=== PATIENT | female | born 1945 | race Two or more races ===

== ENCOUNTER → 2024-05-31 | Outpatient (CLI) | payer OTHER, SELFPAY ==
--- NOTE | 2024-05-31 13:32 | XR_ITS ---
Examination: Knee, right , 3 views Technique: Knee AP, lateral, oblique 3 views Date and time of exam: May 31, 2024 1430 hours INDICATIONS: Injury to the knee 2 months ago, knee pain FINDINGS: Severe osteopenia No fracture or dislocation No foreign body Impression: No acute fracture
--- NOTE | 2024-05-31 13:32 | XR_ITS ---
Examination: Thoracic spine 3 views Technique one AP lateral coned upper lateral dorsal spine 3 views Exam date and time: May 31, 2024 1432 hours Comparison March 25, 2024 INDICATIONS: Injury to the upper back 2 months ago with persistent upper back pain. FINDINGS: Severe osteopenia Thoracic dextroscoliosis 12 degrees Moderate to severe subacute appearing compression fracture T4, reduction in height 70% No cortical bone destruction IMPRESSION: Subacute moderate to severe compression fracture T4
== END | disposition home or self-care (01) ==
PROVIDERS: PCP Family Medicine; Referring Provider Family Medicine; Visit Provider Family Medicine
DX: S22.049A Unspecified fracture of fourth thoracic vertebra, initial encounter for closed fracture (principal); S89.91XA Unspecified injury of right lower leg, initial encounter; X58.XXXA Exposure to other specified factors, initial encounter
CPT/HCPCS: 72072; 73562

== ENCOUNTER → 2024-10-04 | Outpatient (CLI) | payer OTHER, SELFPAY ==
[2024-10-04 13:53] LABS: Basophils % (Auto) 1 % (0-2.5); Eosinophils # (Auto) 0.1 Thou/mm3 (0.0-0.5); Eosinophils % (Auto) 2 % (0-10); Hematocrit 29.2 % (36.0-46.0); Hemoglobin 9.4 g/dL (12.0-16.0); Immature Granulocytes % (Auto) 0 % (0-0); Immature Granulocytes Auto 0.01 Thou/mm3 (0.00-0.00); Lymphocytes # (Auto) 1.3 Thou/mm3 (1.0-4.8); Lymphocytes % (Auto) 33 % (10-50); Mean Corpuscular HGB Conc 32.2 g/dl (31.0-37.0); Mean Corpuscular Volume 96 fL (80-100); Monocytes # (Auto) 0.3 Thou/mm3 (0.0-0.8); Monocytes % (Auto) 7 % (0-12); Neutrophils # (Auto) 2.3 Thou/mm3 (1.8-7.7); Neutrophils % (Auto) 57 % (37-80); Nucleated Red Blood Cell % 0 /100 WBC (0); Platelet Count 161 Thou/mm3 (140-440); RDW Standard Deviation 52.2 fL (36.4-46.3); Red Blood Count 3.03 Miln/mm3 (4.00-5.20)
[2024-10-04 14:04] LABS: Ferritin 28 ng/mL (7.3-270.7); Iron 76 mcg/dL (50-170); Percent Iron Saturation 21 % (20-55); Total Iron Binding Capacity 347 mcg/dL (250-425); Unsaturated Iron Binding 271 (225-295)
[2024-10-04 14:45] LABS: Alanine Aminotransferase 8 U/L (10-49); Albumin, Serum 4.2 gm/dL (3.4-4.8); Albumin/Globulin Ratio 1.8 (1.2-2.2); Alkaline Phosphatase 106 U/L (46-116); Anion Gap 4 (7-16); Aspartate Amino Transferase 24 U/L (0-34); BUN/Creatinine Ratio 24 Ratio (12-20); Bilirubin,Total 0.4 mg/dL (0.3-1.2); Blood Urea Nitrogen 29 mg/dL (9-23); Calcium 9.4 mg/dL (8.3-10.6); Calcium (Corrected) 9.4 mg/dL (8.5-10.1); Carbon Dioxide 24.2 mMol/L (20.0-31.0); Chloride 111 mMol/L (98-107); Creatinine (Component) 1.2 mg/dL (0.6-1.3); Globulin 2.3 gm/dL (2.3-3.5); Glucose 127 mg/dL (74-106); Osmolality,Calculated 285 (275-295); Potassium 4.4 mMol/L (3.4-5.1); Sodium 139 mMol/L (136-145); Total Protein 6.5 gm/dL (5.7-8.2); eGFR 46 See Note
== END | disposition home or self-care (01) ==
PROVIDERS: PCP Family Medicine; Referring Provider Student in an Organized Health Care Education/Training Program; Visit Provider Student in an Organized Health Care Education/Training Program
DX: R10.9 Unspecified abdominal pain (principal); R19.5 Other fecal abnormalities
CPT/HCPCS: 36415; 80053; 82728; 83540; 83550; 85025

== ENCOUNTER → 2024-10-08 | Outpatient (CLI) | payer OTHER, SELFPAY ==
[2024-10-08 11:53] LABS: OBS Performed By LAB; OBS QC OK? Yes
[2024-10-08 14:36] LABS: Occult Blood, Stool Negative (Negative); Occult Blood, Stool #2 Negative (Negative); Occult Blood, Stool #3 Negative (Negative)
[2024-10-08 14:37] LABS: OBS Developer Lot # 551749
== END | disposition home or self-care (01) ==
LOC: SLDO 11:44
PROVIDERS: PCP Student in an Organized Health Care Education/Training Program; Referring Provider Student in an Organized Health Care Education/Training Program; Visit Provider Student in an Organized Health Care Education/Training Program
DX: R10.9 Unspecified abdominal pain (principal); R19.5 Other fecal abnormalities
CPT/HCPCS: 82270

== ENCOUNTER → 2024-10-15 | Outpatient (CLI) | payer OTHER, SELFPAY ==
--- NOTE | 2024-10-15 11:00 | XR_ITS ---
Examination: Abdomen sonogram, complete Date and time of exam: October 15, 2024 1043 hours INDICATIONS: Epigastric pain radiating to the abdomen beginning several years ago. Technique: Multiple real-time grayscale transabdominal sonographic images of the abdomen have been obtained. Findings: Normal gallbladder Normal common bile duct 0.5 cm Pancreatic head 1.9 cm Aorta not enlarged. Liver 12.4 cm lobular contour Normal hepatopedal portal venous flow Patent IVC Right kidney 10.1 cm cortex 1.4 cm Mild right hydronephrosis Left kidney 9.9 cm cortex 1.4 cm Mild renal parenchymal scar formation Spleen 7.6 cm IMPRESSION: Normal gallbladder Suspect primary hepatocellular disease Mild right hydronephrosis
--- NOTE | 2024-10-15 11:00 | XR_ITS ---
Examination: Pelvic ultrasound, transabdominal, complete Technique: Transabdominal ultrasound of the pelvis performed using grayscale imaging Date and time of exam: October 15, 2024 1039 hours INDICATIONS: Pelvic cramping and blood in the stool today FINDINGS: Absent uterus Absent ovaries No free fluid in the pelvis No pelvic mass IMPRESSION: No pelvic mass
== END | disposition home or self-care (01) ==
LOC: CDIM 10:20
PROVIDERS: PCP Family Medicine; Referring Provider Student in an Organized Health Care Education/Training Program; Visit Provider Student in an Organized Health Care Education/Training Program
DX: R10.9 Unspecified abdominal pain (principal)
CPT/HCPCS: 76700; 76856

== ENCOUNTER → 2024-11-26 | Outpatient (CLI) | payer OTHER, SELFPAY ==
--- NOTE | 2024-11-26 13:05 | XR_ITS ---
Examination: Lumbar spine, 5 views Technique: Lumbar spine AP, lateral, coned lateral lower lumbar spine, bilateral obliques 5 views Exam date and time: November 26, 2024 1450 hours Comparison March 25, 2024 INDICATIONS: Low back pain one year. FINDINGS: Prominent osteopenia Lumbar levoscoliosis 21 degrees Diffuse facet arthropathy No acute lumbar fracture Diffuse mild lumbar disc narrowing IMPRESSION: Lumbar levoscoliosis 21 degrees No acute lumbar fracture
--- NOTE | 2024-11-26 13:05 | XR_ITS ---
Examination: Knee bilateral, 7 views Technique: Knee AP, lateral, oblique each knee total 6 views, bilateral AP axial knees single view, total 7 views Date and time of exam: November 26, 2024 1450 hours INDICATIONS: Bilateral knee pain after falling one year ago. FINDINGS: Severe osteopenia Moderate left knee tricompartment osteoarthritis Mild right knee tricompartment osteoarthritis No fractures No patellar dislocation IMPRESSION: Moderate left knee tricompartment osteoarthritis Mild right knee tricompartment osteoarthritis
== END | disposition home or self-care (01) ==
PROVIDERS: PCP Internal Medicine; Referring Provider Internal Medicine; Visit Provider Internal Medicine
DX: M41.9 Scoliosis, unspecified (principal); M85.88 Other specified disorders of bone density and structure, other site; M47.816 Spondylosis without myelopathy or radiculopathy, lumbar region; M17.0 Bilateral primary osteoarthritis of knee
CPT/HCPCS: 72110; 73564

== ENCOUNTER → 2024-12-07 | Outpatient (CLI) | payer OTHER, SELFPAY ==
--- NOTE | 2024-12-07 14:20 | XR_ITS ---
Examination: Bone densitometry Date and time of exam:December 07, 2024 1434 hours INDICATIONS: Hysterectomy age 46, diabetic, postmenopausal fracture T4, personal history osteoporosis Technique: Lumbar spine and hip total bone mineralization values of an calculated. Peak reference and age match control results have been displayed. Findings: Lumbar spine total bone mineralization is0.657 gm/cm2. This is 3.5 standard deviations below peak reference. This is 0.9 standard deviations below age-matched controls. Hip total bone mineralization is 0.335 gm/cm2 This is 4.7 standard deviations below peak reference. This is 2.7 standard deviations below age-matched controls Impression: There is osteoporosis based on lumbar spine measurements. There is osteoporosis based on hip measurements Lumbar mineralization is decreased 0.9% compared with June 29, 2019 Hip mineralization is decreased 23.2% compared with June 29, 2019
== END | disposition home or self-care (01) ==
LOC: CDIM 14:14
PROVIDERS: Referring Provider Internal Medicine; Visit Provider Internal Medicine
DX: M81.0 Age-related osteoporosis without current pathological fracture (principal)
CPT/HCPCS: 77080

== ENCOUNTER → 2024-12-21 | Outpatient (CLI) | payer OTHER, SELFPAY ==
--- NOTE | 2024-12-21 09:00 | XR_ITS ---
Examination: Screening digital mammography, bilateral Computer aided detection 3-D breast Tomosynthesis, bilateral Date and time of exam: December 21, 2024 0852 hours Compared to mammograms dating to June 14, 2014 Indication: Screening Technique: Nonmagnified MLO, CC views of the breasts to been obtained, reconstructed from 3-D Tomosynthesis images. R2 computer aided detection program utilized for evaluation of suspicious masses and/or abnormal calcifications. 3-D Tomosynthesis images obtained. Findings: The breasts are heterogeneously dense, which may obscure small masses Benign calcifications Bilateral skin lesions. No interval suspicious masses Impression: BI-RADS category II: Benign Findings. Recommend 1 year follow-up mammogram.
== END | disposition home or self-care (01) ==
LOC: CDIM 08:42
PROVIDERS: Referring Provider Internal Medicine; Visit Provider Internal Medicine
DX: Z12.31 Encounter for screening mammogram for malignant neoplasm of breast (principal); R92.323 Mammographic fibroglandular density, bilateral breasts; R92.1 Mammographic calcification found on diagnostic imaging of breast
CPT/HCPCS: 77063; 77067

== ENCOUNTER → 2025-04-28 | Outpatient (CLI) | payer OTHER, SELFPAY ==
[2025-04-28 11:58] LABS: Glucose Estimated Average 128 mg/dL (80-131); Hemoglobin A1C 6.1 % Hgb (4.8-6.0)
[2025-04-28 12:14] LABS: Alanine Aminotransferase 8 U/L (10-49); Albumin, Serum 4.3 gm/dL (3.4-4.8); Albumin/Globulin Ratio 2.3 (1.2-2.2); Alkaline Phosphatase 96 U/L (46-116); Anion Gap 6 (7-16); Aspartate Amino Transferase 27 U/L (0-34); BUN/Creatinine Ratio 19 Ratio (12-20); Bilirubin,Total 0.4 mg/dL (0.3-1.2); Blood Urea Nitrogen 19 mg/dL (9-23); Calcium 9.5 mg/dL (8.3-10.6); Calcium (Corrected) 9.5 mg/dL (8.5-10.1); Carbon Dioxide 26.2 mMol/L (20.0-31.0); Cardiac Risk Estimate 4.9 RATIO (3.7-5.6); Chloride 109 mMol/L (98-107); Cholesterol 248 mg/dL (132-200); Creatinine (Component) 1.0 mg/dL (0.6-1.3); Globulin 1.9 gm/dL (2.3-3.5); Glucose 111 mg/dL (74-106); HDL Cholesterol 51 mg/dL (40-60); LDL Cholesterol,Calculated 168 mg/dL (0-130); Osmolality,Calculated 284 (275-295); Potassium 4.7 mMol/L (3.4-5.1); Sodium 141 mMol/L (136-145); Total Protein 6.2 gm/dL (5.7-8.2); Triglycerides 147 mg/dL (30-150); eGFR 57 See Note
[2025-04-28 12:27] LABS: Basophils # (Auto) 0.0 Thou/mm3 (0.0-0.2); Basophils % (Auto) 1 % (0-2.5); Eosinophils # (Auto) 0.1 Thou/mm3 (0.0-0.5); Eosinophils % (Auto) 3 % (0-10); Hematocrit 28.9 % (36.0-46.0); Hemoglobin 9.2 g/dL (12.0-16.0); Immature Granulocytes Auto 0.01 Thou/mm3 (0.00-0.00); Lymphocytes # (Auto) 1.4 Thou/mm3 (1.0-4.8); Lymphocytes % (Auto) 36 % (10-50); Mean Corpuscular HGB Conc 31.8 g/dl (31.0-37.0); Mean Corpuscular Hemoglobin 32.6 pg (25.0-35.0); Mean Corpuscular Volume 103 fL (80-100); Monocytes # (Auto) 0.3 Thou/mm3 (0.0-0.8); Monocytes % (Auto) 7 % (0-12); Neutrophils # (Auto) 2.1 Thou/mm3 (1.8-7.7); Neutrophils % (Auto) 52 % (37-80); Nucleated Red Blood Cell # 0.00 Thou/mm3 (0.00-0.00); Nucleated Red Blood Cell % 0 /100 WBC (0); Platelet Count 143 Thou/mm3 (140-440); RDW Standard Deviation 55.0 fL (36.4-46.3); Red Blood Count 2.82 Miln/mm3 (4.00-5.20); White Blood Count 4.0 Thou/mm3 (3.6-11.0)
[2025-04-28 12:44] LABS: Ferritin 19 ng/mL (7.3-270.7); Iron 71 mcg/dL (50-170); Percent Iron Saturation 20 % (20-55); Total Iron Binding Capacity 341 mcg/dL (250-425); Unsaturated Iron Binding 270 (225-295)
[2025-04-28 12:49] LABS: Amphetamine/Methamp Scrn,U Negative (Negative); Barbiturate Screen,Urine Negative (Negative); Benzodiazepines Screen,Urine Negative (Negative); Benzoylecgonine Screen, Ur Negative (Negative); Fentanyl Screen,Urine Negative (Negative); Opiate Screen,Urine Positive (Negative); THC Screen,Urine Negative (Negative)
== END | disposition home or self-care (01) ==
LOC: COPL 10:03
PROVIDERS: PCP Family Medicine; Referring Provider Internal Medicine; Visit Provider Internal Medicine
DX: I10 Essential (primary) hypertension (principal); M54.50 Low back pain, unspecified; Z79.891 Long term (current) use of opiate analgesic; D64.9 Anemia, unspecified
CPT/HCPCS: 36415; 80053; 80061; 80307; 82728; 83036; 83540; 83550; 85025